=== PATIENT | female | born 1985 | race Caucasian/White ===

== ENCOUNTER → 2020-07-25 | Outpatient (CLI) | payer OTHER ==
[2020-07-25 12:12] VITALS: BP 120/68
--- NOTE | 2020-07-25 13:49 | ROOPDOC ---
[facility] Report Of Operation Report of Operation DATE OF PROCEDURE: July 25 2020 DIAGNOSIS: right breast mass, possible complex cyst PROCEDURE: ultrasound-guided aspiration of right breast cystic-appearing lesion followed by ultrasound-guided biopsy of right breast lesion with clip placement and post biopsy mammogram SURGEON: Harsha Rodriguez BLOOD LOSS: minimal COMPLICATIONS: none Lidocaine 1% LOT [id number] Expiration 05/2023 Sodium Bicarbonate 8.4% LOT [id number] Expiration 05/2021 Hydromark clip LOT [id number] Expiration 02/2023 SHAPE 4 Bx device: BARD [id number] x10 cm LOT [id number] Expiration 02/2023 Informed consent was obtained. The most common risk and possible complications including bleeding, hematoma, bruising, infection, injury to surrounding structures were explained to the patient and the patient expressed understand ing. Patient was placed on the bed in the supine position. Appropriate time out was done stating patients name, date of , and the procedure to be performed. The right breast was prepped and draped in the usual fashion. The ultrasound was used to confirm the location of the lesion in the right breast at 4:00 4.5 centimeters from the nipple. Plain Lidocaine 1% and 8.4% sodium bicarbonate 10:1 mix was used to anesthetize the skin and tissues along the anticipated aspiration/ biopsy tract. 18 G needle was used to access the right breast lesion and attempt of aspiration was made but no fluid was removed. Images of needle position in the middle of the lesion were captured. At this time decision was made to proceed with the biopsy. Small skin incision was made with blade number 11. BARD Marquee 14G cannula with introducer ([id number]) was inserted through the incision and advanced under the ultrasound guidance to position immediately adjacent to the lesion. Next, the introducer was removed and BARD Marquee 14G biopsy device was places in the cannula. Pre-biopsy imaging, and post-biopsy imaging were captured. Five good core biopsies were taken at various levels of the lesion. Specimen was placed in formaldehyde, labeled with appropriate biopsy site and patients name, and sent to pathology for evaluation. Next, the biopsy device was withdrawn and a clip introducer was inserted into the biopsy site via the cannula. The SHAPE 4 Hydromark clip was deployed under sonographic guidance. Post-clip placement image was captured. Manual pressure over the biopsy cavity and tract was held after the clip introducer was withdrawn. No bleeding was noted upon removal of the pressure. Post-biopsy mammogram of the right breast was obtained and showed clip in expected position. Postprocedural dressing was placed. Patient tolerated procedure well. Discharge instructions were discussed with the patient and the patient expressed understanding. HARSHA RODRIGUEZ DO Jul 25, 2020 13:49
--- NOTE | 2020-08-01 12:43 | REP ---
POST BIOPSY MAMMOGRAM RIGHT BREAST Following ultrasound-guided biopsy of a hypoechoic nodule at the 4 o'clock position of the right breast, ML and CC views of the right breast are performed. A metallic biopsy clip is seen inferior and medial in the right breast along the margin of a nodular opacity seen on prior mammograms from [facility] 05/16/2020 and 06/04/2020. GRACIELA
--- NOTE | 2020-08-01 12:44 | REP ---
ULTRASOUND GUIDANCE FOR RIGHT BREAST PHLEBOTOMY Ultrasound guidance was provided for Dr. Christian who performed ultrasound- guided biopsy of a hypoechoic nodule at the 4 o'clock position. The hypoechoic nodule is well visualized and the biopsy needle was seen within the nodule. GRACIELA
== END ==
LOC: M WHCPRO 08:59
PROVIDERS: ATTEND Surgery
DX: D24.1 Benign neoplasm of right breast (principal); N60.21 Fibroadenosis of right breast

== ENCOUNTER → 2021-02-04 | Outpatient (CLI) | payer OTHER ==
--- NOTE | 2021-02-04 10:09 | REP ---
INDICATION: R BREAST/S/P BX/FIBROADENOMA. COMPARISON: 06/04/2020. TECHNIQUE: Real-time sonographic evaluation of right breast performed. FINDINGS: At the 4 o'clock position of the right breast at the site of the prior biopsy, with results of fibroadenoma, there is an oval hypoechoic nodule which measures 9 x 6 x 8 mm. Prior measurements were 9 x 8 x 10 mm. IMPRESSION: BIRADS/ACR category 2, benign. Stable fibroadenoma right breast 4 o'clock. RECOMMENDATION: Clinical follow-up. <Electronically signed by Chapito Edgar > 02/04/21 1009
== END ==
LOC: M WHC 09:35
PROVIDERS: ATTEND Surgery
DX: D24.1 Benign neoplasm of right breast (principal)